=== PATIENT | male | born 1965 | race Caucasian/White ===

== ENCOUNTER → 2021-06-08 08:52 | Outpatient (CLI) | payer OTHER, SELFPAY ==
--- NOTE | 2021-06-08 08:55 | DI.MRI.S_ITS ---
PROCEDURE: MR KNEE LT WO CON INDICATIONS: Chronic instability of knee, left knee TECHNIQUE: Noncontrast sagittal PD fast spin echo and T2 fast spin echo with fat saturation, sagittal 3-D FLASH with fat saturation; coronal T1 spin echo and PD fast spin echo with fat saturation, and axial PD fast spin echo with fat saturation through the knee. COMPARISON: None. FINDINGS: Image quality: Excellent. Menisci: There is peripheral displacement of medial meniscus bowing medial collateral ligament. Oblique tear involving body and posterior horn of medial meniscus is seen extending to inferior articulating surface. There is no focal lateral meniscal tear. The meniscal root ligaments appear intact. Cruciate ligaments: The anterior and posterior cruciate ligaments appear intact. Medial structures: Low to moderate grade MCL sprain/partial-thickness tear is seen. The posterior oblique ligament, semimembranosus tendon insertions, oblique popliteal ligament, and meniscocapsular junction appear intact. Visualized portions of the pes anserinus tendons appear normal. No abnormal bursal fluid. Lateral structures: The lateral collateral ligament, long and short heads of the biceps femoris tendon appear intact. The popliteus tendon appears normal; the popliteofibular ligament appears intact. The posterosuperior and anteroinferior popliteomeniscal fascicles appear intact. The arcuate and fabellofibular ligaments appear intact, on either side of the lateral inferior geniculate artery. Iliotibial band appears normal. Anterior structures: The quadriceps tendon is intact. Tendinosis and low-grade partial-thickness tear involving distal patellar tendon at its anterior tibial insertion is seen. Patellar alignment is normal. No femoral trochlear dysplasia or ventral trochlear prominence. No edema in the infrapatellar fat pad. Bones and cartilage: No acute fracture or dislocation. 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 Joint space: There is moderate to large amount of joint fluid, no gross intra-articular loose body. Tiny popliteal cyst is seen. Normal appearing synovial plicae are incidentally noted. IMPRESSION: 1. 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 Moderate to large joint effusion, no gross loose body. No acute fracture or dislocation. 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 2. Oblique tear involving body and posterior horn of medial meniscus extending to inferior articulating surface. No focal lateral meniscal tear. 3. Cruciate ligaments are intact. Low to moderate grade MCL sprain/partial-thickness tear. 4. Suggestion of distal patellar tendinosis/low-grade partial-thickness tear at its anterior tibial insertion. Quadriceps tendon is intact. Dictated by: Godwin Larios M.D. on 06/08/2021 at 10:24 Approved by: Godwin Larios M.D. on 06/08/2021 at 10:55
== END ==
PROVIDERS: Referring Provider Internal Medicine; Visit Provider Internal Medicine
DX: M23.52 Chronic instability of knee, left knee (principal); S83.242A Other tear of medial meniscus, current injury, left knee, initial encounter; S83.412A Sprain of medial collateral ligament of left knee, initial encounter; M17.12 Unilateral primary osteoarthritis, left knee; M94.262 Chondromalacia, left knee
CPT/HCPCS: 73721